=== PATIENT | female | born 1980 | race Caucasian/White ===

== ENCOUNTER 2018-11-24 12:17 | Emergency (ER) | payer OTHER, SELFPAY ==
[2018-11-24 12:18] VITALS: BP 154/106; PULSE 89; RESP 16; TEMP 36.8; O2SAT 99; BMI 42.3
[2018-11-24] MEDS: Ketorolac 60 MG/2 ML Vial IM (12:49)
[2018-11-24 13:04] LABS: Bacteria 0 SEEN /hpf (None Seen); Mucous, Urine 0 SEEN /hpf (<or=2+); Red Blood Cells-Urine 0 SEEN /hpf (0-5); White Blood Cells 0 SEEN /hpf (0-5)
[2018-11-24 13:17] LABS: Color, Urine Yellow (Yellow); Glucose, Dipstick Normal (Normal); Ketone-Dipstick Negative (Negative); Leukocyte Esterase-Dipstick Negative /ul (Negative); Nitrite-Dipstick Negative (Negative); Occult Blood-Urine Negative /ul (Negative); Protein-Dipstick Negative (Negative); Urine Bilirubin Dipstick Negative (Negative); Urine Clarity Clear (Clear); Urine Urobilinogen Normal (Normal); Urine pH 6.5 (5.0 - 8.0)
[2018-11-24 13:20] LABS: Internal QC Validated? YES +Cl - CLEAR BKGD; Pregnancy, Urine Negative Negative
[2018-11-24 13:42] LABS: Squamous Epithelial Cells - UA 0-5 SEEN /hpf (5-10)
--- NOTE | 2018-11-24 14:02 | ED.DCSUM_ITS ---
- ER Visit Summary Date of Service: 11/24/18 Chief Complaint: Back pain History of Present Illness: The patient is a 38 F with back pain for 2 days. The pain came on gradually. Nothing seemed to bring it on. It is worse with moving and sitting in certain positions. She never had this before. She tried Aleve and heat, but they are not working. She denies any respiratory symptoms. Denies any PE risk factors. Denies any heart issues. Denies any urinary symptoms or history of kidney stones or kidney infections. Denies rash. Denies fever or systemic symptoms. Denies any history of immunocompromise, cancer, AIDS, etc. Denies trauma. Denies history of back surgery or instrumentation. She had a remote tubal ligation and C-sections, but nothing recently. No blood thinners. Physical Examination: Afebrile and vital signs unremarkable except for a blood pressure of 154/106. Inspection unremarkable. She does have some tenderness to palpation to her bilateral lower lumbar areas as well as her right lower thoracic area. CVA nontender. Abdomen nontender. Ambulation normal. Good strength and sensation. Test Results: Urinalysis and test were negative. Emergency Department Course and Treatment: I believe this is myofascial back pain. Her test was negative. Urinalysis unremarkable. 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 No GI symptoms. No respiratory or cardiac symptoms. Nothing to suggest vascular etiology such as aortic disease or pulmonary embolism. No recent trauma. Nothing to suggest a neurologic issue. Patient's vitals, exam, and history are reassuring. Will treat for myofascial back pain. She did receive Toradol here. Will treat with ibuprofen and Flexeril. Follow-up with primary care. Return right away for any new or worsening issues. Treatment Plan: As above Disposition: Discharge Impression: 1. Acute back pain This note was generated with [employer] software. It may contain incorrect words, spelling, and punctuation that were not noted in review of the chart prior to signing ED Disposition - Plan for ED Patient: Referrals: Care Physician,No Primary [Primary Care Provider] -
--- NOTE | 2018-11-24 14:02 | ED.DEP ---
ED Disposition - Plan for ED Patient: Instructions: ED Sprain Strain Lumbar Prescriptions: Ibuprofen [Motrin] 800 mg PO TID PRN PRN #20 tab PRN Reason: Pain Cyclobenzaprine [Flexeril] 10 mg PO TID PRN #20 tab PRN Reason: Muscle Spasm Referrals: Nydia De Jesus [NON-STAFF] -
[2018-11-24 14:11] VITALS: BP 139/71; PULSE 72; RESP 16; O2SAT 100
== END 2018-11-24 14:12 | disposition home or self-care (01) ==
LOC: ED 12:51
PROVIDERS: Emergency Provider Emergency Medicine
DX: M54.6 Pain in thoracic spine (principal); M54.5 Low back pain; J45.909 Unspecified asthma, uncomplicated; Z72.0 Tobacco use
CPT/HCPCS: 81001; 81025; 96372; 99282

== ENCOUNTER 2023-12-03 21:33 | Emergency (ER) | payer OTHER, SELFPAY ==
[2023-12-03 21:35] VITALS: BP 112/84; PULSE 90; RESP 18; TEMP 36.1; O2SAT 98; BMI 29.0
[2023-12-03] MEDS: HYDROmorphone 1 MG/ML Syringe IM (22:44)
[2023-12-03] MEDS: Lidocaine 2% /Epi 1:100 (20ml) 20 ML VIAL INFILT (22:44)
[2023-12-03] MEDS: Ondansetron ODT 4 MG Tablet PO (22:44)
--- NOTE | 2023-12-03 23:45 | EX.ED.DYSGE1 ---
HPI History of Present Illness Chief Complaint: Abscess Informant: patient Narrative Narrative: Patient is a 43-year-old female with past medical history of diabetes who presents with a mass of her left chest wall. She states she has had these in the past but has not been able to follow-up with dermatology. She states this 1 has been a lump for approximately 3 to 4 weeks but in the last 5 to 7 days has become red painful and more swollen. With concern for an infection and the fact he may need incised and drained she presents for evaluation. [facility] Medical History (Updated 12/04/23 @ 03:[address] Dionicio Ansari, DO) Diabetes Home Medications cyclobenzaprine 10 mg tablet 10 mg PO TID PRN Muscle Spasm #20 tabs 11/24/18 [Rx Last Taken Unknown] ibuprofen 800 mg tablet 800 mg PO TID PRN PRN Pain #20 tabs 11/24/18 [Rx Last Taken Unknown] naproxen sodium 220 mg tablet (Aleve) 440 mg PO BID 11/24/18 [History Last Taken Unknown] clindamycin HCl 300 mg capsule 300 mg PO 4X/DAY 7 days #28 caps 12/03/23 [Rx Last Taken Unknown] oxycodone-acetaminophen 5 mg-325 mg tablet (Percocet) 1 tab PO Q6H PRN pain 3 days #12 tabs 12/03/23 [Rx Last Taken Unknown] Allergy/AdvReac Type Severity Reaction Status Date / Time No Known Allergies Allergy Verified 12/03/23 21:35 Social History Smoking Status: Current every day smoker tobacco type: cigarettes ROS ROS ED Constitutional Constitutional ED: Denies chills or fever(s) ENT ENT ED: Denies sore throat Cardiovascular Cardiovascular: Denies chest pain Respiratory/Chest Respiratory/Chest: Denies cough or dyspnea Gastrointestinal Gastrointestinal: Denies abdominal pain, diarrhea, nausea or vomiting Genitourinary Genitourinary ED: Denies dysuria Musculoskeletal Musculoskeletal: Denies myalgias Integumentary Reports abscess Neurologic Neurologic: Denies headache(s) Hematologic/Lymphatic Hematologic/Lymphatic: Denies easy bleeding or easy bruising EXAM Physical Exam Const Vital Signs: 12/03/23 21:35 12/04/23 00:01 Temperature 97 F L 97.5 F L Temperature Source Temporal Pulse Rate 90 80 Respiratory Rate 18 16 Blood Pressure 112/84 H 130/78 H Blood Pressure Mean 93 95 Pulse Ox 98 97 Oxygen Delivery Method Room Air Positive well nourished and well developed General Appearance ED: well developed; Negative for pallor HEENT HEENT Narrative: Normocephalic atraumatic Eyes PERRL and EOMs intact bilaterally General Eye ED: Negative for scleral icterus Neck supple Chest Wall Chest Narrative: Patient has a 2 x 3 cm area of induration with erythema and warmth to the left anterior mid chest wall just below the left breast consistent with abscess. There is no lymphangitic streaking or active discharge present. Resp normal respiratory effort and clear to auscultation bilaterally Cardio regular rate and regular rhythm GI normal to inspection, nondistended, normoactive bowel sounds, non-tender and non-distended Auscultation: normoactive bowel sounds Palpation: soft Extremity normal to inspection Neuro oriented x3, CN's II-XII intact bilaterally and no sensory deficits noted Sensorium / Orientation: alert Motor Exam: strength 5/5 throughout Psych mental status grossly normal Skin Skin Narrative: Abscess to the left anterior chest wall as documented above General Skin Exam: Negative for jaundice or pallor MDM MDM MDM Narrative Medical decision making narrative: Patient presented to ER with stable vitals and reported a mass to the left chest wall which had worsened over the past week. Differential diagnosis is for cyst versus abscess. Physical exam showed an area of induration with erythema and warmth most consistent with abscess. She does not have vital sign or physical exam findings for systemic infection and therefore do not feel need for imaging or laboratory studies. The area was incised and drained as document below and following this patient is otherwise safe for discharge Patient had the left anterior chest wall cleaned with chlorhexidine. The area was then anesthetized using 9 mL of 2% lidocaine with epinephrine and local fashion. A #11 blade was used to make a 1.5 cm incision over top the area of induration. A large amount of purulent material was expressed. Loculations were dissected with a needle mejia. The wound was copiously irrigated with normal saline and then packed with quarter inch show deformed gauze. Patient tolerated the procedure well without complication. History & Record Review Discussion w/independent historian: Patient Discharge Plan Triage Chief Complaint: Abscess ED Provider: Dionicio Ansari Dx/Rx/DC Orders Clinical Impression: Abscess of chest wall, Non-insulin dependent diabetes mellitus Instructions: ED Abscess Incision And Drainage Prescriptions: New clindamycin HCl 300 mg capsule 300 mg PO 4X/DAY 7 Days Qty: 28 0RF oxycodone-acetaminophen [Percocet] 5-325 mg tablet 1 tab PO Q6H PRN (Reason: pain) 3 Days Qty: 12 0RF No Action naproxen sodium [Aleve] 220 MG tablet 440 mg PO BID cyclobenzaprine 10 MG tablet 10 mg PO TID PRN (Reason: Muscle Spasm) Qty: 20 0RF ibuprofen 800 MG tablet 800 mg PO TID PRN PRN (Reason: Pain) Qty: 20 0RF Primary Care Provider: Mireille Alicia NP Referrals: Mireille Alicia NP, NEW ORDER CLERK-C [Primary Care Provider] - Activity Restrictions/Additional Instructions: Please remove your packing in 48 to 72 hours and return to the ER should you have any further concerns Disposition Disposition: Home, Self Care Discharge Date/Time: 12/04/23 00:02
[2023-12-03] MEDS: Clindamycin HCl 150 MG Capsule 300 MG PO (23:59)
[2023-12-04 00:01] VITALS: BP 130/78; PULSE 80; RESP 16; TEMP 36.4; O2SAT 97
== END 2023-12-04 00:02 | disposition home or self-care (01) ==
PROVIDERS: Emergency Provider Emergency Medicine; PCP Nurse Practitioner Family; Visit Provider Emergency Medicine
DX: L02.213 Cutaneous abscess of chest wall (principal); E11.9 Type 2 diabetes mellitus without complications; F17.210 Nicotine dependence, cigarettes, uncomplicated
CPT/HCPCS: 96372; 99282